=== PATIENT | male | born 1970 | race Native Hawaiian/Other Pacific Islander ===

== ENCOUNTER 2021-11-11 19:38 | Emergency (ER) | payer OTHER ==
[~2021-11-11] VITALS: Ht 188 cm; Wt 120.7 kg
[2021-11-11 20:14] LABS: PLATELET COUNT 193 K/uL (142-355)
[2021-11-11 20:28] LABS: POTASSIUM 4.4 mmol/L (3.6-5.2)
[2021-11-11 21:20] VITALS: BP 117/80; TEMP 97.2
[2021-11-11] MEDS ORDERED: HALO5INJ3 IM (23:20)
[2021-11-11] MEDS ORDERED: HALO5TAB10 PO (23:22)
[2021-11-11] MEDS ORDERED: DIPHENHYDRAM50 MG/ML IM (23:22)
[2021-11-11] MEDS ORDERED: HYDROXYZINE HYD50 MG PO (23:23)
[2021-11-11] MEDS ORDERED: TAMSULOSIN0.4 MG PO (23:24)
[2021-11-11] MEDS ORDERED: OLANZAPINE5 M1 PO (23:24)
[2021-11-11] MEDS ORDERED: TRAMADOL HYDROC50 MG PO (23:25)
[2021-11-11] MEDS ORDERED: VITAMIN D325 MCG PO (23:26)
[2021-11-11] MEDS ORDERED: TYLENOL325 MG PO (23:26)
[2021-11-11] MEDS ORDERED: DIPH25CA90 PO (23:29)
[2021-11-11] MEDS ORDERED: TORSEMIDE20 MG PO (23:30)
== END 2021-11-11 21:20 | disposition still patient (30) ==
LOC: ED 19:38
PROVIDERS: Emergency Medicine Emergency Medical Services
DX: R45.1 Restlessness and agitation (principal); F03.91 Unspecified dementia, unspecified severity, with behavioral disturbance; Z11.52 Encounter for screening for COVID-19; Z04.6 Encounter for general psychiatric examination, requested by authority
CPT/HCPCS: 36415; 80053; 81002; 82805; 85027; 87635; 93005; 99283; U0003